=== PATIENT | female | born 1940 | race American Indian/Alaskan Native ===

== ENCOUNTER 2019-12-26 17:47 | Inpatient (IN) | payer MEDICARE, MEDICAID ==
[~2019-12-26] VITALS: Ht 165.1 cm; Wt 65.9 kg
[2019-12-26] MEDS ORDERED: CHOL100018 PO (18:25)
[2019-12-26] MEDS ORDERED: DIGO125T84 PO (18:25)
[2019-12-26] MEDS ORDERED: AUD NEB (18:25)
[2019-12-26] MEDS ORDERED: MELA3TAB82 PO (18:25)
[2019-12-26] MEDS ORDERED: ASPI-728 PO (18:25)
[2019-12-26] MEDS ORDERED: DOCU-342 PO (18:25)
[2019-12-26] MEDS ORDERED: SUCR1TAB28 PO (18:25)
[2019-12-26] MEDS ORDERED: CARV3 PO (18:25)
[2019-12-26] MEDS ORDERED: ATOR20TA86 PO (18:25)
[2019-12-26] MEDS ORDERED: FERR-82 PO (18:25)
[2019-12-26] MEDS ORDERED: CALC-1038 PO (18:25)
[2019-12-26] MEDS ORDERED: HYDR10TA31 PO (18:25)
[2019-12-26] MEDS ORDERED: FLUT1BLS IH (18:25)
[2019-12-26] MEDS ORDERED: TOBR5DRO63 OD (18:25)
[2019-12-26] MEDS ORDERED: PREDAOS OU (18:25)
[2019-12-26] MEDS ORDERED: HYPR15DR23 OD (18:25)
[2019-12-26] MEDS ORDERED: LISI-662 PO (18:25)
[2019-12-26] MEDS ORDERED: DULO30CA2 PO (18:25)
[2019-12-26] MEDS ORDERED: LEVO75 PO (18:25)
[2019-12-26 18:29] LABS: BASOPHILS % (AUTO) 0.8 % (0.0-2.0); EOSINOPHILS % (AUTO) 2.2 % (1.0-6.0); HEMATOCRIT 39.9 % (36-46); HEMOGLOBIN 13.1 g/dL (12.0-16.0); LYMPHOCYTES % (AUTO) 25.3 % (22.0-44.0); MEAN CORPUSCULAR HEMOGLOBIN 28.2 pg (26.0-34.0); MEAN CORPUSCULAR HGB CONC 32.9 G/dL (31.0-37.0); MEAN CORPUSCULAR VOLUME 86 fL (80-100); MONOCYTES # (AUTO) 0.7 K/uL (0.1-1.0); MONOCYTES % (AUTO) 5.6 % (2.0-9.0); NEUTROPHILS # (AUTO) 7.9 K/uL (1.8-7.7); NEUTROPHILS % (AUTO) 66.1 % (40.0-70.0); PLATELET COUNT (AUTO) 296 K/uL (150-450); RED BLOOD CELL COUNT(AUTO) 4.65 MIL/uL (4.00-5.20)
[2019-12-26 18:38] LABS: CALCIUM, TOTAL 9.9 mg/dL (8.8-10.5); CREATININE 1.01 mg/dL (0.60-1.30); POTASSIUM 4.3 mmol/L (3.5-5.1)
[2019-12-26 18:44] LABS: ALBUMIN 2.9 g/dL (3.4-5.0); BILIRUBIN,TOTAL 0.3 mg/dL (0.1-1.0); TOTAL PROTEIN, SERUM 7.2 g/dL (6.4-8.2)
[2019-12-26] MEDS ORDERED: CefTRIAXone 1 GM/DEXTROSE 50 ML IV ONE (20:45)
[2019-12-26 21:19] LABS: APPEARANCE,URINE TURBID (CLEAR); BILIRUBIN,URINE NEGATIVE (NEGATIVE); GLUCOSE, URINE (UA) NEGATIVE (NEGATIVE); KETONES,URINE NEGATIVE (NEGATIVE); LEUKOCYTE ESTERASE ,URINE LARGE (NEGATIVE); NITRATE,URINE NEGATIVE (NEGATIVE); OCCULT BLOOD,URINE MODERATE (NEGATIVE); PH,URINE 5.5 (5.0-8.0); PROTEIN,URINE SEE CONFIRM (NEGATIVE); UROBILINOGEN,URINE 0.2 mg/dL (<=1.0)
[2019-12-26 21:37] LABS: SULFOSALICYLIC ACID,URINE 4+ (Negative); WBC,URINE Full Field /HPF (0-5)
[2019-12-26 21:41] LABS: BACTERIA,URINE Moderate /HPF (None Seen); SQUAMOUS EPITHELIAL CELL,UR Few /LPF (None Seen)
[2019-12-26] MEDS ORDERED: SULFAMETHOX/TRIMETH DS 800-160 MG/TABLET PO ONE (22:15)
[2019-12-26] MEDS ORDERED: GENTAMICIN 80 MG/NACL ISO-OSM 50 ML IV ONE (23:30)
[2019-12-26] MEDS ORDERED: ONDANSETRON HCL 4 MG/2 ML VIAL IVP PRN (23:45)
[2019-12-26] MEDS ORDERED: ACETAMINOPHEN 325 MG TABLET PO PRN (23:45)
[2019-12-26] MEDS ORDERED: 0.9% SODIUM CHLORIDE 10 ML SYRINGE IVP PRN (23:45)
[2019-12-27] VITALS (7 sets, daily range): BP systolic 114–136; BP diastolic 63–82
[2019-12-27] MEDS ORDERED: ONDANSETRON HCL 4 MG/2 ML VIAL IVP PRN
[2019-12-27] MEDS ORDERED: ALBUTEROL SULFATE 2.5 MG/0.5 ML NEB SOLUTION NEB PRN (00:30)
[2019-12-27] MEDS ORDERED: *CLINICAL-GENTAMICIN DOSING CLINICAL ONE (00:30)
[2019-12-27] MEDS ORDERED: IPRATROPIUM BROMIDE 0.5 MG/2.5 ML NEB SOLUTION NEB PRN (00:30)
[2019-12-27] MEDS: ALBUTEROL SULFATE 2.5 MG/0.5 ML NEB SOLUTION NEB SCH ×4 (01:30→20:54)
[2019-12-27] MEDS: IPRATROPIUM BROMIDE 0.5 MG/2.5 ML NEB SOLUTION NEB SCH ×4 (01:30→20:54)
[2019-12-27] MEDS ORDERED: SODIUM CHLORIDE 0.9% 500 ML IV ONE (02:44)
[2019-12-27] MEDS: ACETAMINOPHEN 325 MG TABLET PO PRN ×3 (03:31→20:42)
[2019-12-27] MEDS: LEVOTHYROXINE SODIUM 75 MCG TABLET PO SCH (06:42)
[2019-12-27] MEDS: LISINOPRIL 20 MG TABLET PO SCH (08:17)
[2019-12-27] MEDS: CHOLECALCIFEROL (VIT D3) 1,000 UNITS TABLET PO SCH (08:17)
[2019-12-27] MEDS: ASPIRIN 81 MG CHEWABLE TABLET PO SCH (08:17)
[2019-12-27] MEDS: DOCUSATE SODIUM 250 MG CAPSULE PO SCH ×2 (08:18→19:52)
[2019-12-27] MEDS: TOBRAMYCIN SULFATE 0.3% 5 ML OPHTHALMIC SOLUTION OD SCH ×4 (08:18→19:53)
[2019-12-27] MEDS: FLUTICASONE/VILANTEROL 200-25 MCG/INH INHALER [14] IH SCH (08:18)
[2019-12-27] MEDS: FERROUS SULFATE 325 MG EC TABLET PO SCH ×3 (08:18→17:20)
[2019-12-27] MEDS: HydrALAZINE HCL 10 MG TABLET PO SCH ×3 (08:19→19:53)
[2019-12-27] MEDS: DULoxetine HCL 30 MG CAPSULE PO SCH (08:19)
[2019-12-27] MEDS: CALCIUM OYSTER SHELL 500 MG TABLET PO SCH (08:19)
[2019-12-27] MEDS: CARVEDILOL 3.125 MG TABLET PO SCH ×2 (08:19→19:52)
[2019-12-27] MEDS: PrednisoLONE ACETATE 1% 5 ML OPHTHALMIC SUSPENSION OU SCH ×4 (08:19→19:53)
[2019-12-27] MEDS: PANTOPRAZOLE SODIUM 40 MG DR TABLET PO SCH (08:19)
[2019-12-27] MEDS: DIGOXIN 125 MCG TABLET PO SCH (08:20)
[2019-12-27] MEDS ORDERED: CefTRIAXone 1 GM/DEXTROSE 50 ML IV SCH (10:00)
[2019-12-27] MEDS ORDERED: *CLINICAL-RX DOSING [ENTER DRUG IN COMMENTS] CLINICAL ONE (10:15)
[2019-12-27] MEDS ORDERED: CefoTEtan DISOD 1 GM/DEXTROSE 50 ML IV ONE (11:00)
[2019-12-27] MEDS ORDERED: GENTAMICIN 100 MG/NACL ISO-OSM 50 ML IV SCH (12:00)
[2019-12-27] MEDS: MELATONIN 3 MG TABLET PO SCH (19:53)
[2019-12-27] MEDS: ATORVASTATIN CALCIUM 20 MG TABLET PO SCH (19:53)
[2019-12-27] MEDS: HEPARIN SODIUM,PORCINE 5,000 UNITS/ML VIAL SQ SCH (19:54)
[2019-12-27] MEDS: ZOLPIDEM TARTRATE 5 MG TABLET PO PRN (20:42)
[2019-12-27] MEDS: CefoTEtan DISODIUM 0.5 GM in DEXTROSE 5%-WATER 50 ML IV SCH (20:42)
[2019-12-28] MEDS: IPRATROPIUM BROMIDE 0.5 MG/2.5 ML NEB SOLUTION NEB SCH ×4 (01:53→20:00)
[2019-12-28] MEDS: ALBUTEROL SULFATE 2.5 MG/0.5 ML NEB SOLUTION NEB SCH ×4 (01:53→20:00)
[2019-12-28 05:44] LABS: BASOPHILS % (AUTO) 1.2 % (0.0-2.0); EOSINOPHILS % (AUTO) 4.6 % (1.0-6.0); HEMATOCRIT 38.7 % (36-46); HEMOGLOBIN 12.7 g/dL (12.0-16.0); LYMPHOCYTES % (AUTO) 37.1 % (22.0-44.0); MEAN CORPUSCULAR HEMOGLOBIN 27.8 pg (26.0-34.0); MEAN CORPUSCULAR HGB CONC 32.8 G/dL (31.0-37.0); MEAN CORPUSCULAR VOLUME 85 fL (80-100); MONOCYTES # (AUTO) 0.7 K/uL (0.1-1.0); MONOCYTES % (AUTO) 8.2 % (2.0-9.0); NEUTROPHILS # (AUTO) 3.9 K/uL (1.8-7.7); NEUTROPHILS % (AUTO) 48.9 % (40.0-70.0); PLATELET COUNT (AUTO) 260 K/uL (150-450); RED BLOOD CELL COUNT(AUTO) 4.56 MIL/uL (4.00-5.20); RED CELL DISTRIBUTION WIDTH 17.1 % (11.5-14.5)
[2019-12-28 05:57] LABS: CALCIUM, TOTAL 9.1 mg/dL (8.8-10.5); CREATININE 0.98 mg/dL (0.60-1.30); MAGNESIUM 1.9 mg/dL (1.80-2.40); POTASSIUM 4.4 mmol/L (3.5-5.1)
[2019-12-28] MEDS: LEVOTHYROXINE SODIUM 75 MCG TABLET PO SCH (06:22)
[2019-12-28] MEDS: CHOLECALCIFEROL (VIT D3) 1,000 UNITS TABLET PO SCH (08:02)
[2019-12-28] MEDS: FLUTICASONE/VILANTEROL 200-25 MCG/INH INHALER [14] IH SCH (08:02)
[2019-12-28] MEDS: DULoxetine HCL 30 MG CAPSULE PO SCH (08:03)
[2019-12-28] MEDS: CALCIUM OYSTER SHELL 500 MG TABLET PO SCH (08:03)
[2019-12-28] MEDS: FERROUS SULFATE 325 MG EC TABLET PO SCH ×3 (08:03→16:47)
[2019-12-28] MEDS: DIGOXIN 125 MCG TABLET PO SCH (08:03)
[2019-12-28] MEDS: LISINOPRIL 20 MG TABLET PO SCH (08:03)
[2019-12-28] MEDS: HydrALAZINE HCL 10 MG TABLET PO SCH ×3 (08:03→20:42)
[2019-12-28] MEDS: DOCUSATE SODIUM 250 MG CAPSULE PO SCH ×2 (08:04→20:42)
[2019-12-28] MEDS: ASPIRIN 81 MG CHEWABLE TABLET PO SCH (08:04)
[2019-12-28] MEDS: PANTOPRAZOLE SODIUM 40 MG DR TABLET PO SCH (08:04)
[2019-12-28] MEDS: PrednisoLONE ACETATE 1% 5 ML OPHTHALMIC SUSPENSION OU SCH ×4 (08:11→20:43)
[2019-12-28] MEDS: HEPARIN SODIUM,PORCINE 5,000 UNITS/ML VIAL SQ SCH ×2 (08:11→20:46)
[2019-12-28] MEDS: CARVEDILOL 3.125 MG TABLET PO SCH ×2 (08:11→20:42)
[2019-12-28] MEDS: TOBRAMYCIN SULFATE 0.3% 5 ML OPHTHALMIC SOLUTION OD SCH ×4 (08:12→20:43)
[2019-12-28 08:24] VITALS: BP 150/86
[2019-12-28] MEDS: CefoTEtan DISODIUM 0.5 GM in DEXTROSE 5%-WATER 50 ML IV SCH ×2 (11:17→23:06)
[2019-12-28 11:49] VITALS: BP 144/98
[2019-12-28 15:41] VITALS: BP 133/85
[2019-12-28] MEDS: ATORVASTATIN CALCIUM 20 MG TABLET PO SCH (20:42)
[2019-12-28] MEDS: MELATONIN 3 MG TABLET PO SCH (20:42)
[2019-12-28 20:46] VITALS: BP 145/74
[2019-12-28] MEDS: ZOLPIDEM TARTRATE 5 MG TABLET PO PRN (23:06)
[2019-12-28 23:13] VITALS: BP 117/57
[2019-12-29] MEDS: ALBUTEROL SULFATE 2.5 MG/0.5 ML NEB SOLUTION NEB SCH ×4 (02:00→20:00)
[2019-12-29] MEDS: IPRATROPIUM BROMIDE 0.5 MG/2.5 ML NEB SOLUTION NEB SCH ×4 (02:00→20:00)
[2019-12-29 04:47] VITALS: BP 126/82
[2019-12-29] MEDS: LEVOTHYROXINE SODIUM 75 MCG TABLET PO SCH (06:09)
[2019-12-29 06:12] LABS: CALCIUM, TOTAL 9.1 mg/dL (8.8-10.5); CREATININE 1.04 mg/dL (0.60-1.30)
[2019-12-29 08:08] VITALS: BP 139/79
[2019-12-29] MEDS: FLUTICASONE/VILANTEROL 200-25 MCG/INH INHALER [14] IH SCH ×2 (09:00→09:31)
[2019-12-29] MEDS: FERROUS SULFATE 325 MG EC TABLET PO SCH ×3 (09:31→16:53)
[2019-12-29] MEDS: TOBRAMYCIN SULFATE 0.3% 5 ML OPHTHALMIC SOLUTION OD SCH ×4 (09:32→20:25)
[2019-12-29] MEDS: HydrALAZINE HCL 10 MG TABLET PO SCH ×3 (09:32→20:24)
[2019-12-29] MEDS: PrednisoLONE ACETATE 1% 5 ML OPHTHALMIC SUSPENSION OU SCH ×4 (09:32→20:25)
[2019-12-29] MEDS: ASPIRIN 81 MG CHEWABLE TABLET PO SCH (09:33)
[2019-12-29] MEDS: DOCUSATE SODIUM 250 MG CAPSULE PO SCH ×2 (09:33→20:24)
[2019-12-29] MEDS: CARVEDILOL 3.125 MG TABLET PO SCH ×2 (09:33→20:24)
[2019-12-29] MEDS: DULoxetine HCL 30 MG CAPSULE PO SCH (09:34)
[2019-12-29] MEDS: DIGOXIN 125 MCG TABLET PO SCH (09:34)
[2019-12-29] MEDS: CALCIUM OYSTER SHELL 500 MG TABLET PO SCH (09:35)
[2019-12-29] MEDS: PANTOPRAZOLE SODIUM 40 MG DR TABLET PO SCH (09:35)
[2019-12-29] MEDS: CHOLECALCIFEROL (VIT D3) 1,000 UNITS TABLET PO SCH (09:35)
[2019-12-29] MEDS: LISINOPRIL 20 MG TABLET PO SCH (09:35)
[2019-12-29] MEDS: HEPARIN SODIUM,PORCINE 5,000 UNITS/ML VIAL SQ SCH ×2 (09:36→20:25)
[2019-12-29] MEDS: CefoTEtan DISOD 1 GM/DEXTROSE 50 ML IV SCH ×2 (10:56→22:59)
[2019-12-29 12:03] VITALS: BP 148/86
[2019-12-29 16:23] VITALS: BP 117/62
[2019-12-29 19:20] VITALS: BP 125/67
[2019-12-29] MEDS: ATORVASTATIN CALCIUM 20 MG TABLET PO SCH (20:24)
[2019-12-29] MEDS: MELATONIN 3 MG TABLET PO SCH (20:24)
[2019-12-29] MEDS: ZOLPIDEM TARTRATE 5 MG TABLET PO PRN (22:58)
[2019-12-29 23:17] VITALS: BP 144/83
[2019-12-30] MEDS: ALBUTEROL SULFATE 2.5 MG/0.5 ML NEB SOLUTION NEB SCH ×4 (00:56→20:00)
[2019-12-30] MEDS: IPRATROPIUM BROMIDE 0.5 MG/2.5 ML NEB SOLUTION NEB SCH ×4 (00:56→20:00)
[2019-12-30 04:47] VITALS: BP 139/74
[2019-12-30] MEDS: LEVOTHYROXINE SODIUM 75 MCG TABLET PO SCH (06:04)
[2019-12-30 06:57] LABS: CREATININE 1.07 mg/dL (0.60-1.30); POTASSIUM 4.2 mmol/L (3.5-5.1)
[2019-12-30 06:58] LABS: CALCIUM, TOTAL 9.2 mg/dL (8.8-10.5)
[2019-12-30 07:40] VITALS: BP 137/76
[2019-12-30] MEDS: FLUTICASONE/VILANTEROL 200-25 MCG/INH INHALER [14] IH SCH (08:16)
[2019-12-30] MEDS: CHOLECALCIFEROL (VIT D3) 1,000 UNITS TABLET PO SCH (08:17)
[2019-12-30] MEDS: DIGOXIN 125 MCG TABLET PO SCH (08:17)
[2019-12-30] MEDS: CALCIUM OYSTER SHELL 500 MG TABLET PO SCH (08:17)
[2019-12-30] MEDS: ASPIRIN 81 MG CHEWABLE TABLET PO SCH (08:17)
[2019-12-30] MEDS: DULoxetine HCL 30 MG CAPSULE PO SCH (08:17)
[2019-12-30] MEDS: PANTOPRAZOLE SODIUM 40 MG DR TABLET PO SCH (08:17)
[2019-12-30] MEDS: CARVEDILOL 3.125 MG TABLET PO SCH ×2 (08:17→20:14)
[2019-12-30] MEDS: HydrALAZINE HCL 10 MG TABLET PO SCH ×3 (08:17→20:14)
[2019-12-30] MEDS: FERROUS SULFATE 325 MG EC TABLET PO SCH ×3 (08:17→16:31)
[2019-12-30] MEDS: HEPARIN SODIUM,PORCINE 5,000 UNITS/ML VIAL SQ SCH ×2 (08:18→20:14)
[2019-12-30] MEDS: PrednisoLONE ACETATE 1% 5 ML OPHTHALMIC SUSPENSION OU SCH ×4 (08:18→20:14)
[2019-12-30] MEDS: LISINOPRIL 20 MG TABLET PO SCH (08:18)
[2019-12-30] MEDS: TOBRAMYCIN SULFATE 0.3% 5 ML OPHTHALMIC SOLUTION OD SCH ×4 (08:18→20:13)
[2019-12-30] MEDS: DOCUSATE SODIUM 250 MG CAPSULE PO SCH ×2 (08:18→20:14)
[2019-12-30] MEDS: CefoTEtan DISOD 1 GM/DEXTROSE 50 ML IV SCH ×2 (10:39→23:38)
[2019-12-30 11:23] VITALS: BP 133/76
[2019-12-30 15:30] VITALS: BP 134/92
[2019-12-30 19:24] VITALS: BP 126/71
[2019-12-30] MEDS: ACETAMINOPHEN 325 MG TABLET PO PRN (19:32)
[2019-12-30] MEDS: ATORVASTATIN CALCIUM 20 MG TABLET PO SCH (20:14)
[2019-12-30] MEDS: MELATONIN 3 MG TABLET PO SCH (20:14)
[2019-12-30 23:50] VITALS: BP 121/57
[2019-12-31] MEDS ORDERED: SODIUM CHLORIDE 0.9% 250 ML IV ONE (00:01)
[2019-12-31] MEDS: ALBUTEROL SULFATE 2.5 MG/0.5 ML NEB SOLUTION NEB SCH ×2 (02:00→20:00)
[2019-12-31] MEDS: IPRATROPIUM BROMIDE 0.5 MG/2.5 ML NEB SOLUTION NEB SCH ×2 (02:00→20:00)
[2019-12-31] MEDS: LEVOTHYROXINE SODIUM 75 MCG TABLET PO SCH (06:00)
[2019-12-31 06:10] VITALS: BP 133/70
[2019-12-31 07:28] VITALS: BP 99/44
[2019-12-31] MEDS: HEPARIN SODIUM,PORCINE 5,000 UNITS/ML VIAL SQ SCH ×2 (08:36→20:16)
[2019-12-31] MEDS: FERROUS SULFATE 325 MG EC TABLET PO SCH ×3 (08:37→17:31)
[2019-12-31] MEDS: DOCUSATE SODIUM 250 MG CAPSULE PO SCH ×2 (08:37→20:15)
[2019-12-31] MEDS: CHOLECALCIFEROL (VIT D3) 1,000 UNITS TABLET PO SCH (08:37)
[2019-12-31] MEDS: PrednisoLONE ACETATE 1% 5 ML OPHTHALMIC SUSPENSION OU SCH ×3 (08:38→20:13)
[2019-12-31] MEDS: FLUTICASONE/VILANTEROL 200-25 MCG/INH INHALER [14] IH SCH (08:38)
[2019-12-31] MEDS: TOBRAMYCIN SULFATE 0.3% 5 ML OPHTHALMIC SOLUTION OD SCH ×4 (08:38→20:14)
[2019-12-31] MEDS: PANTOPRAZOLE SODIUM 40 MG DR TABLET PO SCH (08:39)
[2019-12-31] MEDS: CALCIUM OYSTER SHELL 500 MG TABLET PO SCH (08:39)
[2019-12-31] MEDS: DIGOXIN 125 MCG TABLET PO SCH (08:39)
[2019-12-31] MEDS: DULoxetine HCL 30 MG CAPSULE PO SCH (08:39)
[2019-12-31] MEDS: ASPIRIN 81 MG CHEWABLE TABLET PO SCH (08:39)
[2019-12-31] MEDS: HydrALAZINE HCL 10 MG TABLET PO SCH ×3 (09:00→20:15)
[2019-12-31 11:21] VITALS: BP 130/83
[2019-12-31] MEDS: CefoTEtan DISOD 1 GM/DEXTROSE 50 ML IV SCH ×2 (11:46→23:38)
[2019-12-31] MEDS: CARVEDILOL 3.125 MG TABLET PO SCH ×2 (11:47→20:16)
[2019-12-31] MEDS: LISINOPRIL 20 MG TABLET PO SCH (11:47)
[2019-12-31 16:05] VITALS: BP 115/66
[2019-12-31 20:05] VITALS: BP 142/83
[2019-12-31] MEDS: ATORVASTATIN CALCIUM 20 MG TABLET PO SCH (20:15)
[2019-12-31] MEDS: MELATONIN 3 MG TABLET PO SCH (20:15)
[2019-12-31 23:39] VITALS: BP 114/61
[2020-01-01] MEDS: IPRATROPIUM BROMIDE 0.5 MG/2.5 ML NEB SOLUTION NEB SCH ×4 (02:00→20:00)
[2020-01-01] MEDS: ALBUTEROL SULFATE 2.5 MG/0.5 ML NEB SOLUTION NEB SCH ×4 (02:00→20:00)
[2020-01-01 05:17] VITALS: BP 118/69
[2020-01-01 05:39] VITALS: BP 123/51
[2020-01-01] MEDS: LEVOTHYROXINE SODIUM 75 MCG TABLET PO SCH (06:10)
[2020-01-01] MEDS: PrednisoLONE ACETATE 1% 5 ML OPHTHALMIC SUSPENSION OU SCH ×4 (08:10→20:26)
[2020-01-01] MEDS: TOBRAMYCIN SULFATE 0.3% 5 ML OPHTHALMIC SOLUTION OD SCH ×4 (08:10→20:27)
[2020-01-01] MEDS: DOCUSATE SODIUM 250 MG CAPSULE PO SCH ×2 (08:11→20:27)
[2020-01-01] MEDS: CALCIUM OYSTER SHELL 500 MG TABLET PO SCH (08:11)
[2020-01-01] MEDS: FLUTICASONE/VILANTEROL 200-25 MCG/INH INHALER [14] IH SCH (08:11)
[2020-01-01] MEDS: FERROUS SULFATE 325 MG EC TABLET PO SCH ×3 (08:11→17:53)
[2020-01-01] MEDS: PANTOPRAZOLE SODIUM 40 MG DR TABLET PO SCH (08:11)
[2020-01-01] MEDS: CHOLECALCIFEROL (VIT D3) 1,000 UNITS TABLET PO SCH (08:11)
[2020-01-01] MEDS: HydrALAZINE HCL 10 MG TABLET PO SCH ×3 (08:11→20:27)
[2020-01-01] MEDS: HEPARIN SODIUM,PORCINE 5,000 UNITS/ML VIAL SQ SCH ×2 (08:12→20:27)
[2020-01-01] MEDS: DIGOXIN 125 MCG TABLET PO SCH (08:12)
[2020-01-01] MEDS: DULoxetine HCL 30 MG CAPSULE PO SCH (08:12)
[2020-01-01] MEDS: LISINOPRIL 20 MG TABLET PO SCH (08:12)
[2020-01-01] MEDS: CARVEDILOL 3.125 MG TABLET PO SCH ×2 (08:13→20:30)
[2020-01-01] MEDS: ASPIRIN 81 MG CHEWABLE TABLET PO SCH (08:13)
[2020-01-01 09:04] VITALS: BP 142/84
[2020-01-01] MEDS: CefoTEtan DISOD 1 GM/DEXTROSE 50 ML IV SCH ×2 (11:31→23:03)
[2020-01-01 11:50] VITALS: BP 120/64
[2020-01-01] MEDS: ACETAMINOPHEN 325 MG TABLET PO PRN (13:33)
[2020-01-01 16:52] VITALS: BP 145/61
[2020-01-01] MEDS: MELATONIN 3 MG TABLET PO SCH (20:27)
[2020-01-01] MEDS: ATORVASTATIN CALCIUM 20 MG TABLET PO SCH (20:27)
[2020-01-01 20:31] VITALS: BP 113/62
[2020-01-02] VITALS: BP 133/63
[2020-01-02] MEDS: IPRATROPIUM BROMIDE 0.5 MG/2.5 ML NEB SOLUTION NEB SCH ×2 (02:00→09:10)
[2020-01-02] MEDS: ALBUTEROL SULFATE 2.5 MG/0.5 ML NEB SOLUTION NEB SCH ×2 (02:00→09:10)
[2020-01-02 04:00] VITALS: BP 136/67
[2020-01-02] MEDS: LEVOTHYROXINE SODIUM 75 MCG TABLET PO SCH (05:59)
[2020-01-02 07:52] VITALS: BP 98/55
[2020-01-02] MEDS: CALCIUM OYSTER SHELL 500 MG TABLET PO SCH (08:25)
[2020-01-02] MEDS: DULoxetine HCL 30 MG CAPSULE PO SCH (08:25)
[2020-01-02] MEDS: CHOLECALCIFEROL (VIT D3) 1,000 UNITS TABLET PO SCH (08:26)
[2020-01-02] MEDS: PrednisoLONE ACETATE 1% 5 ML OPHTHALMIC SUSPENSION OU SCH (08:26)
[2020-01-02] MEDS: FLUTICASONE/VILANTEROL 200-25 MCG/INH INHALER [14] IH SCH ×2 (08:26→08:48)
[2020-01-02] MEDS: TOBRAMYCIN SULFATE 0.3% 5 ML OPHTHALMIC SOLUTION OD SCH (08:26)
[2020-01-02] MEDS: FERROUS SULFATE 325 MG EC TABLET PO SCH (08:27)
[2020-01-02] MEDS: DOCUSATE SODIUM 250 MG CAPSULE PO SCH (08:27)
[2020-01-02] MEDS: ASPIRIN 81 MG CHEWABLE TABLET PO SCH (08:27)
[2020-01-02] MEDS: HEPARIN SODIUM,PORCINE 5,000 UNITS/ML VIAL SQ SCH (08:27)
[2020-01-02] MEDS: PANTOPRAZOLE SODIUM 40 MG DR TABLET PO SCH (08:27)
[2020-01-02] MEDS: HydrALAZINE HCL 10 MG TABLET PO SCH (08:48)
[2020-01-02] MEDS: CARVEDILOL 3.125 MG TABLET PO SCH (08:48)
[2020-01-02] MEDS: DIGOXIN 125 MCG TABLET PO SCH (08:49)
[2020-01-02] MEDS: LISINOPRIL 20 MG TABLET PO SCH (08:49)
[2020-01-02] MEDS ORDERED: CEFO2I IV (09:40)
[2020-01-02] MEDS: CefoTEtan DISOD 1 GM/DEXTROSE 50 ML IV SCH (09:56)
[2020-01-02 11:20] VITALS: BP 115/90
== END 2020-01-02 12:25 | disposition home health service (06) | DRG 690 ==
LOC: EMS 17:51 → 4E 12-27 00:11
PROVIDERS: ADMIT Internal Medicine; ATTEND Internal Medicine
PROC: 05HY33Z Insertion of Infusion Device into Upper Vein, Percutaneous Approach (ICD-10-PCS; principal; 2019-12-30)
PROC: B54NZZA Ultrasonography of Left Upper Extremity Veins, Guidance (ICD-10-PCS; 2019-12-30)
DX: N39.0 Urinary tract infection, site not specified (principal); I48.20 Chronic atrial fibrillation, unspecified; Z16.24 Resistance to multiple antibiotics; R65.10 Systemic inflammatory response syndrome (SIRS) of non-infectious origin without acute organ dysfunction; F41.9 Anxiety disorder, unspecified; M19.90 Unspecified osteoarthritis, unspecified site; I50.9 Heart failure, unspecified; J44.9 Chronic obstructive pulmonary disease, unspecified; F32.9 Major depressive disorder, single episode, unspecified; K21.9 Gastro-esophageal reflux disease without esophagitis; E78.00 Pure hypercholesterolemia, unspecified; E03.9 Hypothyroidism, unspecified; B96.20 Unspecified Escherichia coli [E. coli] as the cause of diseases classified elsewhere; N28.9 Disorder of kidney and ureter, unspecified; I11.0 Hypertensive heart disease with heart failure; Z96.659 Presence of unspecified artificial knee joint; I27.20 Pulmonary hypertension, unspecified; G62.9 Polyneuropathy, unspecified; E78.5 Hyperlipidemia, unspecified; Z88.0 Allergy status to penicillin; Z90.710 Acquired absence of both cervix and uterus; Z88.8 Allergy status to other drugs, medicaments and biological substances; Z90.10 Acquired absence of unspecified breast and nipple; Z88.1 Allergy status to other antibiotic agents
CPT/HCPCS: 36245; 36569; 74176; 76937; 83605; 83735; 84145; 87040; 87081; 87086; 93005; 94640; G0378; J0696; J1580; J1644; J3490; J7040; J7050; J7060